=== PATIENT | female | born 1980 | race Caucasian/White ===

== ENCOUNTER → 2017-03-03 | Outpatient (CLI) | payer SELFPAY | END | disposition home or self-care (01) | LOC: LAB.O 09:10 | PROVIDERS: ATTEND Orthopaedic Surgery | DX: Z01.818 Encounter for other preprocedural examination (principal) ==

== ENCOUNTER 2017-03-26 06:00 | Day surgery (SDC) | payer OTHER ==
--- NOTE | 2017-03-17 11:03 | HP ---
CHIEF COMPLAINT: Right knee pain. HISTORY OF PRESENT ILLNESS: Ms. Momin is a 36-year-old female with a history of right knee pain that has been going on since October of this year. She had a twisting injury and has been having mechanical symptoms that she says includes locking up. She denies any radiation of pain and denies any neurologic symptoms. The pain is predominantly along the medial aspect of her knee. She has had an MRI and the MRI does demonstrate the presence of a meniscus tear. Because of the pain and the presence of meniscus tear on MRI, we have talked about options. At this point, we are going to proceed with knee arthroscopy. PAST SURGICAL HISTORY: 1. Gastric sleeve. 2. Toe surgery. MEDICATIONS: 1. Lexapro. ALLERGIES: NO KNOWN DRUG ALLERGIES. CODE STATUS: Full code. IMMUNIZATIONS: Up to date. SOCIAL HISTORY: The patient does not smoke or use any illicit drugs. She does drink on occasion. FAMILY HISTORY: None pertinent to today's complaint. REVIEW OF SYSTEMS: Negative except as indicated in the History of Present Illness. PHYSICAL EXAMINATION: VITAL SIGNS: Blood pressure 116/72. Pulse 78. Height 6'. Weight 210. MENTAL STATUS: The patient is awake, alert, and is able to give a good history and participate in the physical. The patient is oriented to person, place and time. SKIN: Normal tone and turgor. HEENT: Normocephalic, atraumatic. Pupils equal, round and reactive. Mucosal membranes are moist. NECK: Normal range of motion. No thyromegaly, no lymphadenopathy. CHEST: Normal respiratory excursion. CARDIAC: Regular rate and rhythm. No murmurs, rubs or gallops. MUSCULOSKELETAL: She has an obvious moderate effusion. She is very tender to palpation along the medial aspect of the knee. She has intact sensation throughout. It is warm and well perfused and she does not have any varus/ valgus or anterior/posterior laxity. She does maintain full extension and flexion is to about 125 go 130 degrees. She does have some clicking with flexion and extension. IMAGING: MRI shows evidence of a medial meniscus tear, however, x-rays were within normal limits. ASSESSMENT: 1. Medial meniscus tear with mechanical symptoms. PLAN: The plan at this point is for knee arthroscopy. We have discussed the risks, benefits, and alternatives to that and the patient has given informed consent. #[id number] [id number]
[2017-03-26] MEDS ORDERED: ceFAZolin SODIUM 1 GM VIAL ONE ×3 (08:54→11:06)
[2017-03-26] MEDS ORDERED: BUPIVACAINE 0.25% W/EPI 50 ML VIAL INJ ONE (08:54)
[2017-03-26] MEDS ORDERED: MORPHINE SULFATE *EPIDURAL* 0.5 MG/ML VIAL ONE (10:31)
[2017-03-26] MEDS ORDERED: MIDAZOLAM INJ 2 MG/2 ML VIAL ONE (10:31)
[2017-03-26] MEDS ORDERED: fentaNYL CITRATE INJ 50 MCG/ML AMP ONE ×2 (10:32→10:33)
[2017-03-26] MEDS ORDERED: LACTATED RINGERS 1,000 ML ONE (11:06)
[2017-03-26] MEDS ORDERED: SODIUM CHL 0.9% 100ML MINI-BAG 100 ML IVPB ONE (11:06)
[2017-03-26] MEDS ORDERED: LIDOCAINE 1% 10 ML VIAL INJ ONE (12:00)
[2017-03-26] MEDS ORDERED: raNITIdine HCL INJ 25 MG/ML VIAL IV ONE (12:00)
[2017-03-26] MEDS ORDERED: PROPOFOL 200 MG/20 ML VIAL IV ONE (12:00)
[2017-03-26] MEDS ORDERED: DEXAMETHASONE INJ 10 MG/ML VIAL IV ONE (12:00)
[2017-03-26] MEDS ORDERED: KETOROLAC TROMETHAMINE INJ 30 MG/ML VIAL ONE (12:34)
[2017-03-26 13:21] VITALS: O2SAT 98
[2017-03-26 14:29] VITALS: BP 130/79; TEMP 97.6
--- NOTE | 2017-03-27 08:37 | OP ---
DATE OF PROCEDURE: 03/26/17 PREOPERATIVE DIAGNOSIS: 1. Medial meniscus tear. 2. Chondromalacia. POSTOPERATIVE DIAGNOSIS: 1. Full thickness cartilaginous defect involving the medial compartment as well as the patellofemoral compartment. PROCEDURE: 1. Debridement. 2. Chondroplasty. SURGEON: Shakeel Calvillo MD. ENROLLMENT MANAGER: Anthony Villaseñor CST, -C. ANESTHESIA: General. COMPLICATIONS: None. FINDINGS: 1. Full thickness cartilaginous defect involving the medial femoral condyle. 2. Normal medial meniscus. 3. Normal anterior cruciate ligament. 4. Normal posterior cruciate ligament. 5. Degenerative changes in the lateral compartment measuring grade 2. 6. Normal lateral meniscus. 7. Normal lateral gutter. 8. Normal suprapatellar pouch. 9. Full thickness defects involving the articular surface of the patellofemoral joint on both the femur and the patella. 10. Normal medial gutter. INDICATION: Ms. Momin has a history of knee pain with some mechanical symptoms. Although the MRI did appear to demonstrate some meniscal tearing, there was also chondromalacia and we discussed the findings on MRI and the potential for multiple procedures inclusive of debridement, chondroplasty and possible meniscectomy. After discussing the risks, benefits and alternatives to operative therapy, the patient has given informed consent. PROCEDURE: The patient was brought to the Operating Room and placed in supine position. General anesthesia was induced and the patient's leg was sterilely prepped and draped. Following prepping and draping, standard anteromedial and anterolateral portals were established. Diagnostic arthroscopy was carried out with the above findings. Attention was then focused on the medial femoral condyle. Using a 3.5 mm full radius shaver, the cartilaginous surface was debrided to stable base. Following that, I elected to not do any type of microfracture just given the fact that she did have changes on her patellofemoral joint and the stresses there would not likely allow good healing. The knee was thoroughly irrigated and drained. Following draining of the knee, the wounds were closed with Nylon suture. Sterile dressings were placed. The patient was awoken from anesthesia and taken to Recovery. POSTOPERATIVE INSTRUCTIONS: The patient will be partial weightbearing until followup with us in about two days. We will talk further about her options once she follows up. #[id number] [facility]
== END 2017-03-26 14:15 | disposition home or self-care (01) ==
LOC: AMB 06:00
PROVIDERS: ATTEND Orthopaedic Surgery
DX: M23.203 Derangement of unspecified medial meniscus due to old tear or injury, right knee (principal); M22.41 Chondromalacia patellae, right knee; Z98.84 Bariatric surgery status
CPT/HCPCS: 01400; 29877; 81025; J0690; J1100; J1885; J2250; J2274; J2780; J3010; J3490; J7050; J7120

== ENCOUNTER → 2018-06-04 | Outpatient (CLI) | payer OTHER ==
--- NOTE | 2018-06-04 09:17 | RAD ---
EXAM DESCRIPTION: Knee,Right Complete CLINICAL HISTORY: 38 years, Female, PAIN IN RIGHT KNEE COMPARISON: None TECHNIQUE: Four views of the right knee including standing views FINDINGS: No fracture or dislocation. Bones appear osteopenic with prominent trabecular pattern. Narrowed appearance of medial more than lateral compartments on frontal view with mild medial joint line spurring and spurring of the tibial spines. Lateral view shows normal position of the patella. No patellar spurring or enthesopathy. Question small suprapatellar knee joint effusion. Normal contour of quadriceps and patellar tendons. No abnormal patellar tilt or subluxation on patellar sunrise view. Spurring of the anterior medial femoral condyle. IMPRESSION: Degenerative changes as described. Electronically signed by: Felton Ordaz MD 06/04/2018 9:16 AM REFRACTORY SPECIALIST
--- NOTE | 2018-06-04 09:18 | RAD ---
EXAM DESCRIPTION: Pelvis CLINICAL HISTORY: 38 years Female, PAIN IN RIGHT HIP COMPARISON: None. FINDINGS: Degenerative spurring is seen at the right more than left femoral head neck junctions. Transitional vertebrae at L5. Sacrum appears intact. Pelvic ring appears intact with phleboliths in the right pelvis. IMPRESSION: Degenerative changes of the right hip more than left. Electronically signed by: Felton Ordaz MD 06/04/2018 9:16 AM SECOND RIDE FARE COLLECTOR
== END ==
LOC: RAD 08:35
PROVIDERS: ATTEND Orthopaedic Surgery
DX: M25.561 Pain in right knee (principal); M25.551 Pain in right hip